=== PATIENT | male | born 1965 | race Caucasian/White ===

== ENCOUNTER 2018-02-20 03:11 | Emergency (ER) | payer MEDICAID ==
[2018-02-20 04:22] LABS: ADD MAN DIFF? NO
[2018-02-20 04:25] LABS: WHITE BLOOD COUNT 8.8 10^3/ul (4.8-10.8)
[2018-02-20 04:25] LABS: BASOPHIL # 0.1 10^3/ul (0.0-0.1); EOSINOPHILS % 0.3 % (0.0-7.0); HEMATOCRIT 41.9 % (42.0-52.0); HEMOGLOBIN 14.9 g/dl (14.0-18.0); LYMPHOCYTES # 1.5 10^3/ul (0.8-2.9); LYMPHOCYTES % 16.7 % (15.0-51.0); MEAN CORPUSCULAR HEMOGLOBIN 31.9 pg (29.0-33.0); MEAN CORPUSCULAR HGB CONC 35.6 g/dl (32.0-37.0); MEAN CORPUSCULAR VOLUME 89.7 fl (82.0-101.0); MEAN PLATELET VOLUME 8.3 fl (7.4-10.4); MONOCYTE # 0.7 10^3/ul (0.3-0.9); MONOCYTES % 7.5 % (0.0-11.0); NEUTROPHIL # 6.5 10^3/ul (1.6-7.5); NEUTROPHILS % 73.8 % (39.0-77.0); PLATELET COUNT 287 10^3/UL (140-415); RED BLOOD COUNT 4.67 10^6/ul (4.70-6.10); RED CELL DISTRIBUTION WIDTH 12.5 % (11.5-14.5)
[2018-02-20] MEDS: ASPIRIN 325 MG TAB PO (04:35)
[2018-02-20] MEDS: LORAZEPAM 1 MG TAB PO (04:35)
[2018-02-20] MEDS: LABETALOL HCL 20MG INJ IV (04:36)
[2018-02-20] MEDS: SOD CHLORIDE 0.9% 1,000 ML IV (04:37)
[2018-02-20 04:43] LABS: ANION GAP 22 (8-16); BLOOD UREA NITROGEN 9 mg/dl (7-20); CALCIUM 9.4 mg/dl (8.4-10.2); CARBON DIOXIDE 23 mmol/L (21-31); CHLORIDE 99 mmol/L (97-110); CREATININE 0.86 mg/dl (0.61-1.24); GLUCOSE 110 mg/dl (70-220); POTASSIUM 3.7 mmol/L (3.5-5.1); SODIUM 140 mmol/L (135-144)
[2018-02-20 04:55] LABS: B-TYPE NATRIURETIC PEPTIDE 104 PG/ML (0-125)
[2018-02-20 04:57] LABS: TROPONIN-I < 0.012 ng/ml (0.000-0.120)
== END 2018-02-20 08:10 | disposition home or self-care (01) ==
LOC: E/R 03:11
DX: F15.10 Other stimulant abuse, uncomplicated (principal); I10 Essential (primary) hypertension; F17.210 Nicotine dependence, cigarettes, uncomplicated
CPT/HCPCS: 36415; 71045; 80048; 83880; 84484; 85025; 93005; 96374; 99291-25